=== PATIENT | female | born 1985 ===

== ENCOUNTER → 2020-07-25 09:56 | Outpatient (BNVA) | payer MEDICAID, SELFPAY | PROVIDERS: PCP Internal Medicine; Visit Provider Nurse Practitioner Family | DX: G89.4 Chronic pain syndrome (principal); M16.31 Unilateral osteoarthritis resulting from hip dysplasia, right hip | CPT/HCPCS: 99202 ==

== ENCOUNTER → 2020-08-19 14:11 | Outpatient (BNVA) | payer MEDICAID, SELFPAY | PROVIDERS: PCP Internal Medicine; Visit Provider Nurse Practitioner Family | DX: M16.31 Unilateral osteoarthritis resulting from hip dysplasia, right hip (principal); G90.529 Complex regional pain syndrome I of unspecified lower limb; G89.4 Chronic pain syndrome | CPT/HCPCS: 99212 ==

== ENCOUNTER 2020-10-19 14:00 | Outpatient (RCR) | payer MEDICAID, SELFPAY | END 2020-10-20 11:11 | disposition other institution (70) | LOC: HO.PTWFD 14:00 | PROVIDERS: PCP Internal Medicine; Visit Provider Anesthesiology | DX: M16.31 Unilateral osteoarthritis resulting from hip dysplasia, right hip (principal) | CPT/HCPCS: 97110; 97140; 97161; 97530; 97535 ==

== ENCOUNTER → 2020-12-02 15:48 | Outpatient (BNVA) | payer MEDICAID, SELFPAY | PROVIDERS: PCP Internal Medicine; Visit Provider Nurse Practitioner Family | DX: M16.31 Unilateral osteoarthritis resulting from hip dysplasia, right hip (principal); G89.4 Chronic pain syndrome; G90.529 Complex regional pain syndrome I of unspecified lower limb; Z79.899 Other long term (current) drug therapy | CPT/HCPCS: 99212 ==

== ENCOUNTER 2020-12-22 10:04 | Outpatient (REF) | payer MEDICAID, SELFPAY | END 2020-12-22 10:05 | disposition home or self-care (01) | LOC: HO.HOSX 10:04 | PROVIDERS: Visit Provider Orthopaedic Surgery | DX: Z13.89 Encounter for screening for other disorder (principal) ==